=== PATIENT | female | born 1990 | race Caucasian/White ===

== ENCOUNTER 2019-11-14 10:58 | Emergency (ER) | payer MEDICAID ==
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
[2019-11-14] MEDS: Ketorolac 60 MG/2 ML SDV IM ONE (11:42)
--- NOTE | 2019-11-14 11:49 | CR ---
[id number] RAD/RAD Knee Right 3V EXAM: RAD Knee Right 3V INDICATION: CHRONIC KNEE PAIN, WORSENING. COMPARISON: None. DISCUSSION: No fracture, joint effusion, dislocation or other osseous abnormality. IMPRESSION: 1. Negative exam. Rex Valerio MD 11/14/19 1148 Thank you for allowing us to participate in the care of your patient.
== END 2019-11-14 12:10 | disposition home or self-care (01) ==
LOC: KA.ED 10:58
DX: M25.561 Pain in right knee (principal); F17.210 Nicotine dependence, cigarettes, uncomplicated
CPT/HCPCS: 73562-RT; 96372; 99283; J1885

== ENCOUNTER 2020-12-20 08:27 | Emergency (ER) | payer OTHER ==
[2020-12-20] MEDS: Sodium Chloride 0.9% 1,000 ML IV ONE ×2 (08:50→09:53)
[2020-12-20] MEDS: Ondansetron 4 MG/2 ML SDV IVPUSH ONE (08:51)
[2020-12-20] MEDS ORDERED: Sodium Chloride 0.9% 10 ML Syringe FLUSH PRN (08:58)
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
[2020-12-20 09:29] LABS: ANION GAP 11.7 mmol/L (5-15); CHLORIDE,CL 105 mmol/L (98-107); SODIUM,NA 140 mmol/L (136-145)
[2020-12-20] MEDS: HYDROmorphone 1 MG/ML Syringe IVPUSH ONE (09:45)
[2020-12-20] MEDS: Alum Hydrox/Mag Hydrox/Simeth 30 ML, Lidocaine 2% 15 ML PO ONE ×2 (10:03)
[2020-12-20] MEDS: Prochlorperazine 10 MG/2 ML SDV IVPUSH ONE (11:15)
== END 2020-12-20 12:15 | disposition home or self-care (01) ==
LOC: KA.ED 08:27
DX: R11.2 Nausea with vomiting, unspecified (principal); E66.9 Obesity, unspecified; Z88.6 Allergy status to analgesic agent; Z88.8 Allergy status to other drugs, medicaments and biological substances; Z68.36 Body mass index [BMI] 36.0-36.9, adult; Z20.822 Contact with and (suspected) exposure to COVID-19
CPT/HCPCS: 36415; 80053; 81001; 83690; 84703; 85025; 87086; 87635; 96374; 96375; 99284; A9270; J0780; J1170; J2405; J7030; U0002

== ENCOUNTER 2021-01-10 17:39 | Emergency (ER) | payer OTHER ==
[2021-01-10] MEDS ORDERED: Sodium Chloride 0.9% 10 ML Syringe FLUSH PRN (17:55)
--- NOTE | 2021-01-10 18:05 | EDM.PDOC ---
ED HPI GENERAL MEDICAL PROBLEM - General Chief Complaint: Abdominal Pain Stated Complaint: ABDOMINAL PAIN Time Seen by Provider: 01/10/21 18:04 Source of Information: Reports: Patient - History of Present Illness INITIAL COMMENTS - FREE TEXT/NARRATIVE: Leann, 30-year-old female, presents with lower abdominal pain both right and left quadrants. Onset was today mid afternoon and has worsened. States she feels pressure as well as pain. Underwent EGD with findings of hiatal hernia as well as H. pylori positive and has been placed on amoxicillin, Biaxin, and omeprazole. States a 30# weight loss since abd issues started. States she had a bowel movement today but had to force it and has been very firm. Denies any urinary issues. Appetite has been down with some nausea well as upper discomfort/bloated sensation. No emesis occurring. Denies shortness of breath but states the abdominal pressure does affect her breathing. States no discussion on hiatal hernia repair was given as she was told it was very small. She has been compliant in her medication regimen as well as dietary intake. Questions if stress is part of this as she states stressful situations seem to increase the upper GI symptoms. Denies any change in her urine. Onset: Today Duration: Hour(s): Location: Reports: Abdomen Quality: Reports: Pressure, Sharp Severity: Severe Improves with: Reports: None Worsens with: Reports: Movement Context: Reports: Other Associated Symptoms: Reports: Nausea/Vomiting Bilateral Lower Abdominal Pain Score (Numeric/FACES): 8 - Related Data Allergies Allergy/AdvReac Type Severity Reaction Status Date / Time ibuprofen Allergy Stomach Verified 01/10/21 18:26 Upset ketorolac [From Toradol] Allergy Stomach Verified 01/10/21 18:26 Upset Home Meds: Home Meds Acetaminophen [Tylenol Extra Strength] 2,000 mg PO QID PRN 11/14/19 [History] Etonogestrel [Nexplanon] 68 mg SQ ASDIRECTED 11/14/19 [History] Amoxicillin 1,000 cap PO BID 01/10/21 [History] Clarithromycin 500 mg PO BID 01/10/21 [History] LORazepam [Ativan] 0.5 mg PO BID PRN 01/10/21 [History] Non-Formulary Medication [NF Drug] 1 tab PO BID 01/10/21 [History] Omeprazole 20 mg PO ASDIRECTED 01/10/21 [History] Past Medical History HEENT History: Reports: None Other HEENT History: wears contacts Cardiovascular History: Reports: None Respiratory History: Reports: None Gastrointestinal History: Reports: GERD, Helicobacter Pylori, Hiatal Hernia [employer] History: Reports: Other (See Below) Other [employer] History: x1 miscarriage Musculoskeletal History: Reports: Fracture, Other (See Below) Other Musculoskeletal History: Right Tibial plateau fracture 2015 Endocrine/Metabolic History: Reports: Obesity/BMI 30+ - Past Surgical History Musculoskeletal Surgical History: Reports: Other (See Below) (Clubfoot) Social & Family History - Family History Family Medical History: No Pertinent Family History - Tobacco Use Tobacco Use Status *Q: Never Tobacco User - Caffeine Use Caffeine Use: Reports: Soda ED ROS GENERAL - Review of Systems Review Of Systems: Comprehensive ROS is negative, except as noted in HPI. ED EXAM, GENERAL - Physical Exam Exam: See Below Free Text/Narrative:: Alert, oriented, in mild painful distress. HEENT is negative to discharge or deformity. [place] moist mucous membranes Neck soft supple with no rigidity appreciated. Thorax is clear throughout with no wheezes or crackles. Cardiac is S1-S2 with no noted murmur. Bowel sounds are present throughout, mild pressure sensation in the epigastric region and upper quadrants minimally involved. No flank pain. There is no periumbilical pain. Right lower and left lower quadrant discomfort to palpation with pain increasing and pressure increasing to palpation. Questionable rebound tenderness is noted. No direct psoas sign is appreciated, but she states motion and travel all bumps of the road were noted. GI rectal is deferred. There is no edema to the lower extremities. Course - Vital Signs Last Recorded V/S: Last Vital Signs Temp 97.3 F 01/10/21 19:29 Pulse 77 01/10/21 19:29 Resp 16 01/10/21 19:29 BP 124/71 01/10/21 19:29 Pulse Ox 97 01/10/21 19:29 - Orders/Labs/Meds Orders: Active Orders 24 hr Category Date Time Status Sodium Chloride 0.9% [Normal Saline] 50 ml Med 01/10/21 19:45 Active IV ASDIRECTED Sodium Chloride 0.9% [Saline Flush] Med 01/10/21 17:55 Active 10 ml FLUSH Q8HR PRN Saline Lock Insert [OM.PC] Routine Oth 01/10/21 17:55 Ordered Medication Orders Sodium Chloride (Normal Saline) 50 mls @ 200 mls/hr IV ASDIRECTED JOSÉ MIGUEL Last Admin: 01/10/21 19:41 Dose: 200 mls/hr Documented by: MAN Sodium Chloride (Sodium Chloride 0.9% 10 Ml Syringe) 10 ml FLUSH Q8HR PRN PRN Reason: keep vein open Labs: Laboratory Tests 01/10/21 01/10/21 01/10/21 Range/Units 18:05 18:05 18:05 WBC 15.27 H (5.00-10.00) 10^3/uL RBC 4.77 (3.80-5.50) 10^6/uL Hgb 14.8 (12.0-16.0) g/dL Hct 44.4 (37.0-47.0) % MCV 93.1 H (82.0-92.0) fL MCH 31.0 (27.0-31.0) pg MCHC 33.3 (32.0-36.0) g/dL RDW 11.3 L (11.5-14.5) % Plt Count 232 (150-400) 10^3/uL MPV 12.0 H (7.4-10.4) fL Immature Gran % (Auto) 0.1 (0.0-5.0) % Neut % (Auto) 84.4 H (50.0-70.0) % Lymph % (Auto) 10.0 L (20.0-40.0) % [place] % (Auto) 5.0 (2.0-8.0) % Eos % (Auto) 0.2 L (1.0-3.0) % Baso % (Auto) 0.3 (0.0-1.0) % Neut # (Auto) 12.89 H (2.50-7.00) 10^3/uL Lymph # (Auto) 1.52 (1.00-4.00) 10^3/uL [place] # (Auto) 0.77 (0.10-0.80) 10^3/uL Eos # (Auto) 0.03 L (0.10-0.30) 10^3/uL Baso # (Auto) 0.04 (0.00-0.10) 10^3/uL Immature Gran # (Auto) 0.02 (0.00-0.50) 10^3/uL Sodium 143 (136-145) mmol/L Potassium 4.1 (3.5-5.1) mmol/L Chloride 105 (98-107) mmol/L Carbon Dioxide 22.9 (21.0-32.0) mmol/L Anion Gap 19.2 H (5-15) mmol/L BUN 12 (7-18) mg/dL Creatinine 0.66 (0.51-1.17) mg/dL Est Cr Clr Drug Dosing 107.63 mL/min Estimated GFR (MDRD) > 60 mL/min Glucose 114 (70-140) mg/dL Calcium 9.0 (8.7-10.3) mg/dL Total Bilirubin 1.0 (0.2-1.0) mg/dL AST 13 L (15-37) U/L ALT 22 (14-63) U/L Alkaline Phosphatase 60 (46-116) U/L Total Protein 7.7 (6.4-8.2) g/dL Albumin 4.38 (3.40-5.00) g/dL Amylase 62 (25-125) U/L Lipase 102 (73-393) U/L HCG, Qual Negative (NEGATIVE) Meds: Medications Generic Name Dose Route Start Last Admin Trade Name Freq PRN Reason Stop Dose Admin Sodium Chloride 50 mls @ 200 mls/hr 01/10/21 19:45 01/10/21 19:41 Normal Saline IV 200 mls/hr ASDIRECTED JOSÉ MIGUEL Administration Sodium Chloride 10 ml 01/10/21 17:55 Sodium Chloride 0.9% 10 Ml Syringe FLUSH Q8HR PRN keep vein open Discontinued Medications Generic Name Dose Route Start Last Admin Trade Name Freq PRN Reason Stop Dose Admin Al Hydroxide/Mg Hydroxide 30 0 ml 01/10/21 17:55 01/10/21 18:23 ml/ Lidocaine HCl 15 ml PO 01/10/21 17:56 45 ml ONETIME ONE Administration Sodium Chloride 1,000 mls @ 999 mls/hr 01/10/21 17:55 01/10/21 18:13 Normal Saline IV 01/10/21 18:55 999 mls/hr .BOLUS ONE Administration Iopamidol 75 ml 01/10/21 19:40 01/10/21 19:41 Iopamidol 755 Mg/Ml 75 Ml Bottle IVPUSH 01/10/21 19:41 33 ml ONETIME ONE Administration Morphine Sulfate 1 mg 01/10/21 18:41 01/10/21 18:49 Morphine 2 Mg/Ml Syringe IVPUSH 01/10/21 18:42 1 mg ONETIME ONE Administration Ondansetron HCl 8 mg 01/10/21 17:55 01/10/21 18:19 Ondansetron 4 Mg/2 Ml Sdv IVPUSH 01/10/21 17:56 8 mg ONETIME ONE Administration - Re-Assessments/Exams Free Text/Narrative Re-Assessment/Exam: 01/10/21 19:25 GI cocktail produced some numbness to the lips mouth with minimal improvement of the epigastric region. morphine slight improvement. Unable to tolerate IV contrast, Due to discomfort, so only part of the dose was so only part of the dose was given. 01/10/21 20:[address] report and lab findings and lab findings and dietary restrictions. 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 Acknowledges follow-up as scheduled on Wednesday, And instructions. Departure - Departure Time of Disposition: 20:13 Disposition: Home, Self-Care 01 Condition: Good Clinical Impression: Hiatal hernia, H. pylori infection Abdominal pain Qualifiers: Abdominal location: generalized Qualified Code(s): R10.84 - Generalized abdominal pain - Discharge Information *PRESCRIPTION DRUG MONITORING PROGRAM REVIEWED*: Not Applicable *COPY OF PRESCRIPTION DRUG MONITORING REPORT IN PATIENT NAREN: Not Applicable Instructions: Helicobacter Pylori Infection, Hiatal Hernia Referrals: Elizabeth Adamson MD [Primary Care Provider] - Forms: ED Department Discharge Additional Instructions: There is no evidence on your CT of any abnormalities. The white count elevation I relate to stress as you are currently on 2 antibiotics for your H. pylori infection as well as the proton pump inhibitor. You need to adjust your lifestyle by no lifting or excessive bending. No laying down after eating or drinking for at least 2 hours. You could consider elevating the head of your bed 3 to 6 inches. Avoid large intake of fluid or food as that can cause further stretch on the stomach putting pressure on your hiatal hernia. Anxiety may be playing a part in this as gastric irritation does occur in some people with a higher anxiety/stress level. Continue your medications as directed. Make sure you are well-hydrated. You may consider adding a probiotic or yogurt into your daily regimen to help stomach protection/GI function while you are on antibiotic regimen. Make sure you attend your appointment on Wednesday at the clinic and if pain becomes severe you will need to return to the emergency department outside of clinic hours. Sepsis Event Note (ED) - Focused Exam Vital Signs: Vital Signs Temp Pulse Resp BP Pulse Ox 01/10/21 19:29 97.3 F 77 16 124/71 97 01/10/21 18:14 97.4 F 92 16 106/62 96 - Problem List & Annotations (1) Abdominal pain SNOMED Code(s): 95545503 Code(s): R10.9 - UNSPECIFIED ABDOMINAL PAIN Status: Acute Priority: High Qualifiers: Abdominal location: generalized Qualified Code(s): R10.84 - Generalized abdominal pain (2) Leukocytosis SNOMED Code(s): 069394540, 311643407 Code(s): D72.829 - ELEVATED WHITE BLOOD CELL COUNT, UNSPECIFIED Status: Acute Priority: High Qualifiers: Leukocytosis type: unspecified Qualified Code(s): D72.829 - Elevated white blood cell count, unspecified (3) H. pylori infection SNOMED Code(s): 171855409 Code(s): A04.8 - OTHER SPECIFIED BACTERIAL INTESTINAL INFECTIONS Status: Acute (4) Hiatal hernia SNOMED Code(s): 75213231 Code(s): K44.9 - DIAPHRAGMATIC HERNIA WITHOUT OBSTRUCTION OR GANGRENE Status: Chronic Priority: Medium - Problem List Review Problem List Initiated/Reviewed/Updated: Yes - My Orders Last 24 Hours: My Active Orders 01/10/21 17:55 Sodium Chloride 0.9% [Saline Flush] 10 ml FLUSH Q8HR PRN Saline Lock Insert [OM.PC] Routine 01/10/21 19:45 Sodium Chloride 0.9% [Normal Saline] 50 ml IV ASDIRECTED - Assessment/Plan Last 24 Hours: My Active Orders 01/10/21 17:55 Sodium Chloride 0.9% [Saline Flush] 10 ml FLUSH Q8HR PRN Saline Lock Insert [OM.PC] Routine 01/10/21 19:45 Sodium Chloride 0.9% [Normal Saline] 50 ml IV ASDIRECTED Plan: There is no evidence on your CT of any abnormalities. The white count elevation I relate to stress as you are currently on 2 antibiotics for your H. pylori infection as well as the proton pump inhibitor. You need to adjust your lifestyle by no lifting or excessive bending. No laying down after eating or drinking for at least 2 hours. You could consider elevating the head of your bed 3 to 6 inches. Avoid large intake of fluid or food as that can cause further stretch on the stomach putting pressure on your hiatal hernia. Anxiety may be playing a part in this as gastric irritation does occur in some people with a higher anxiety/stress level. Continue your medications as directed. Make sure you are well-hydrated. You may consider adding a probiotic or yogurt into your daily regimen to help stomach protection/GI function while you are on antibiotic regimen. Make sure you attend your appointment on Wednesday at the clinic and if pain becomes severe you will need to return to the emergency department outside of inic hours.
[2021-01-10] MEDS: Sodium Chloride 0.9% 1,000 ML IV ONE (18:13)
[2021-01-10] MEDS: Ondansetron 4 MG/2 ML SDV IVPUSH ONE (18:19)
[2021-01-10] MEDS: Alum Hydrox/Mag Hydrox/Simeth 30 ML, Lidocaine 2% 15 ML PO ONE ×2 (18:23)
[2021-01-10 18:32] LABS: ANION GAP 19.2 mmol/L (5-15); CHLORIDE,CL 105 mmol/L (98-107); SODIUM,NA 143 mmol/L (136-145)
[2021-01-10] MEDS: Morphine 2 MG/ML SYRINGE IVPUSH ONE (18:49)
[2021-01-10] MEDS: Sodium Chloride 0.9% 50 ML IV SCH (19:41)
[2021-01-10] MEDS: Iopamidol 755 Mg/ML 75 ML Bottle IVPUSH ONE (19:41)
--- NOTE | 2021-01-10 19:54 | CT ---
[id number] CT/CT Abdomen Pelvis W IV EXAM: CT Abdomen Pelvis W IV CLINICAL DATA: ABDOMEN PAIN. ELEVATED WBC COMPARISON STUDY: None. FINDINGS: Small pericardial effusion. Bases are clear. Liver, spleen, gallbladder, pancreas, adrenal glands, and kidneys are unremarkable. No bowel obstruction or inflammation. The appendix is normal. No lymphadenopathy, free fluid, or pneumoperitoneum. Uterus and adnexal regions are unremarkable. Urinary bladder is unremarkable. Spondylosis. No acute fracture or compression deformity. IMPRESSION: No acute findings or other significant abnormality in the abdomen/pelvis. Tirso Luong MD 01/10/211951 Thank you for allowing us to participate in the care of your patient.
== END 2021-01-10 20:20 | disposition home or self-care (01) ==
LOC: KA.ED 17:39
DX: K44.9 Diaphragmatic hernia without obstruction or gangrene (principal); A04.8 Other specified bacterial intestinal infections; K21.9 Gastro-esophageal reflux disease without esophagitis; E66.9 Obesity, unspecified; Z68.33 Body mass index [BMI] 33.0-33.9, adult; Z88.6 Allergy status to analgesic agent; Z88.5 Allergy status to narcotic agent; Z79.899 Other long term (current) drug therapy
CPT/HCPCS: 36415; 74177; 80053; 82150; 83690; 84703; 85025; 96374; 96375; 99284; 99284-25; A9270-GY; J2270; J2405; J7030; Q9967

== ENCOUNTER 2021-09-28 13:10 | Emergency (ER) | payer OTHER ==
[2021-09-28] MEDS ORDERED: Sodium Chloride 0.9% 10 ML Syringe FLUSH PRN (13:13)
[2021-09-28] MEDS: Ondansetron 4 MG/2 ML SDV IVPUSH ONE (13:23)
[2021-09-28] MEDS: Sodium Chloride 0.9% 1,000 ML IV ONE (13:23)
[2021-09-28 13:49] LABS: ANION GAP 19.4 mmol/L (5-15); CHLORIDE,CL 103 mmol/L (98-107); SODIUM,NA 139 mmol/L (136-145)
[2021-09-28 13:51] LABS: ESTIMATED GFR 125 mL/min (>=60)
[2021-09-28] MEDS: Metoclopramide 10 MG/2 ML SDV IVPUSH ONE (13:55)
[2021-09-28] MEDS: HYDROmorphone 1 MG/ML Syringe IVPUSH ONE (14:00)
[2021-09-28] MEDS: Iopamidol 755 Mg/ML 75 ML Bottle IVPUSH ONE (14:27)
[2021-09-28] MEDS ORDERED: Sodium Chloride 0.9% 50 ML IV SCH (14:30)
[2021-09-28] MEDS: Sodium Chloride 0.9% 1,000 ML ONE (14:52)
[2021-09-28] MEDS: Potassium Chloride 20 MEQ Tab.ER PO ONE (15:07)
[2021-09-28] MEDS: Ondansetron 4 MG Tab.DIS PO ONE (15:08)
== END 2021-09-28 15:00 | disposition home or self-care (01) ==
LOC: KA.ED 13:10
DX: K52.9 Noninfective gastroenteritis and colitis, unspecified (principal); E87.6 Hypokalemia; E66.9 Obesity, unspecified; Z68.36 Body mass index [BMI] 36.0-36.9, adult; Z88.1 Allergy status to other antibiotic agents; Z88.6 Allergy status to analgesic agent; Z79.899 Other long term (current) drug therapy; Z20.822 Contact with and (suspected) exposure to COVID-19
CPT/HCPCS: 36415; 74177; 80053; 81001; 83690; 84703; 85025; 96361; 96374; 96375; 99284-25; A9270-GY; J1170; J2405; J2765; J7030; Q9967; U0002

== ENCOUNTER 2022-03-10 11:03 | Emergency (ER) | payer OTHER ==
[2022-03-10] MEDS ORDERED: Ondansetron 4 MG/2 ML SDV ONE (11:15)
[2022-03-10] MEDS ORDERED: Ondansetron 4 MG/2 ML SDV IVPUSH ONE ×2 (11:21→13:14)
[2022-03-10] MEDS ORDERED: HYDROmorphone 1 MG/ML Syringe IVPUSH ONE ×2 (11:50→13:14)
[2022-03-10] MEDS ORDERED: Sodium Chloride 0.9% 1,000 ML IV ONE (11:50)
[2022-03-10 12:06] LABS: ANION GAP 17.6 mmol/L (5-15); CHLORIDE,CL 106 mmol/L (98-107); SODIUM,NA 141 mmol/L (136-145)
[2022-03-10 12:09] LABS: ESTIMATED GFR 123 mL/min (>=60)
[2022-03-10] MEDS ORDERED: Iopamidol 755 Mg/ML 75 ML Bottle IVPUSH ONE (12:27)
[2022-03-10] MEDS ORDERED: Sodium Chloride 0.9% 50 ML IV SCH (12:30)
== END 2022-03-10 14:40 | disposition home or self-care (01) ==
LOC: KA.ED 11:03
DX: R10.9 Unspecified abdominal pain (principal); R11.2 Nausea with vomiting, unspecified; K21.9 Gastro-esophageal reflux disease without esophagitis; E66.9 Obesity, unspecified; Z68.32 Body mass index [BMI] 32.0-32.9, adult; Z88.8 Allergy status to other drugs, medicaments and biological substances
CPT/HCPCS: 36415; 74177; 80053; 81001; 83690; 85025; 96361; 96374; 96375; 96376; 99284; 99284-25; J1170; J2405; J7030; Q9967

== ENCOUNTER 2022-05-11 02:53 | Emergency (ER) | payer OTHER, MEDICAID ==
[2022-05-11] MEDS ORDERED: Sodium Chloride 0.9% 10 ML Syringe FLUSH PRN ×2 (03:11→03:22)
[2022-05-11] MEDS: Sodium Chloride 0.9% 1,000 ML IV ONE (03:39)
[2022-05-11] MEDS: Prochlorperazine 10 MG/2 ML SDV IVPUSH ONE (03:52)
[2022-05-11] MEDS: Prochlorperazine 10 MG/2 ML SDV ONE (04:00)
[2022-05-11] MEDS: Alum Hydrox/Mag Hydrox/Simeth 30 ML, Lidocaine 2% 15 ML PO ONE ×2 (04:14)
== END 2022-05-11 04:35 | disposition home or self-care (01) ==
LOC: KA.ED 02:53
DX: R10.9 Unspecified abdominal pain (principal); G89.29 Other chronic pain; R11.2 Nausea with vomiting, unspecified; R94.31 Abnormal electrocardiogram [ECG] [EKG]; K21.9 Gastro-esophageal reflux disease without esophagitis; E66.9 Obesity, unspecified; Z68.29 Body mass index [BMI] 29.0-29.9, adult; Z88.8 Allergy status to other drugs, medicaments and biological substances; Z79.899 Other long term (current) drug therapy
CPT/HCPCS: 71046; 80053; 83690; 84484; 85025; 93010; 96361; 96374; 99284; 99284-25; A9270-GY; J0780; J7030

== ENCOUNTER 2022-10-04 14:10 | Emergency (ER) | payer OTHER, MEDICAID ==
[2022-10-04] MEDS ORDERED: Ondansetron 4 MG/2 ML SDV IVPUSH ONE (14:28)
[2022-10-04] MEDS ORDERED: Sodium Chloride 0.9% 1,000 ML IV ONE (14:28)
[2022-10-04] MEDS ORDERED: Sodium Chloride 0.9% 10 ML Syringe FLUSH PRN (14:28)
[2022-10-04 14:53] LABS: BASOPHILS ABSOLUTE AUTO 0.06 10^3/uL (0.00-0.10); BASOPHILS PERCENT AUTO 0.4 % (0.0-1.0); HEMATOCRIT 39.9 % (37.0-47.0); HEMOGLOBIN 13.3 g/dL (12.0-16.0); IMMATURE GRAN ABSOLUTE AUTO 0.02 10^3/uL (0.00-0.50); IMMATURE GRAN PERCENT AUTO 0.1 % (0.0-5.0); LYMPHOCYTES ABSOLUTE AUTO 1.09 10^3/uL (1.00-4.00); LYMPHOCYTES PERCENT AUTO 7.8 % (20.0-40.0); MEAN CORPUSCULAR HEMOGLOBIN 31.3 pg (27.0-31.0); MEAN CORPUSCULAR HGB CONC 33.3 g/dL (32.0-36.0); MEAN CORPUSCULAR VOLUME 93.9 fL (82.0-92.0); MEAN PLATELET VOLUME 11.6 fL (7.4-10.4); MONOCYTES ABSOLUTE AUTO 0.34 10^3/uL (0.10-0.80); MONOCYTES PERCENT AUTO 2.4 % (2.0-8.0); NEUTROPHILS ABSOLUTE AUTO 12.54 10^3/uL (2.50-7.00); NEUTROPHILS PERCENT AUTO 89.3 % (50.0-70.0); PLATELET COUNT,PLT 257 10^3/uL (150-400); RED BLOOD CELL COUNT 4.25 10^6/uL (3.80-5.50); RED CELL DISTRIBUTION WIDTH 11.6 % (11.5-14.5); WHITE BLOOD CELL COUNT,WBC 14.05 10^3/uL (5.00-10.00)
[2022-10-04 15:13] LABS: ALANINE AMINOTRANSFERASE,ALT 17 U/L (14-63); ALBUMIN 3.61 g/dL (3.40-5.00); ALKALINE PHOSPHATASE 51 U/L (46-116); ASPARTATE AMNIOTRANSFERASE,AST 12 U/L (15-37); BILIRUBIN TOTAL 0.2 mg/dL (0.2-1.0); BLOOD UREA NITROGEN,BUN 16 mg/dL (7-18); CARBON DIOXIDE,CO2 23.4 mmol/L (21.0-32.0); CHLORIDE,CL 104 mmol/L (98-107); CREATININE 0.46 mg/dL (0.51-1.17); GLUCOSE RANDOM 127 mg/dL (70-140); LIPASE 46 U/L (73-393); POTASSIUM,K 3.4 mmol/L (3.5-5.1); PROTEIN TOTAL,TP 7.2 g/dL (6.4-8.2); SODIUM,NA 143 mmol/L (136-145)
[2022-10-04 15:14] LABS: ESTIMATED GFR 131 mL/min (>=60)
[2022-10-04] MEDS ORDERED: LORazepam 2 MG/ML SDV IVPUSH ONE (15:37)
== END 2022-10-04 16:15 | disposition home or self-care (01) ==
LOC: KA.ED 14:10
DX: K52.9 Noninfective gastroenteritis and colitis, unspecified (principal); E86.0 Dehydration; K31.84 Gastroparesis; D72.823 Leukemoid reaction; Z88.6 Allergy status to analgesic agent; Z79.899 Other long term (current) drug therapy; E66.9 Obesity, unspecified; Z86.16 Personal history of COVID-19; Z68.26 Body mass index [BMI] 26.0-26.9, adult
CPT/HCPCS: 36415; 80053; 83605; 83690; 85025; 96361; 96374; 96375; 99284; 99284-25; J2060; J2405; J7030